=== PATIENT | female | born 1990 | race Caucasian/White ===

== ENCOUNTER 2017-11-27 14:38 | Emergency (ER) | payer MEDICAID ==
[2017-11-27 14:57] VITALS: RESP 18; O2SAT 98
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
[2017-11-27 18:26] VITALS: BP 96/71; PULSE 71; TEMP 98.2
== END 2017-11-27 20:05 | disposition home or self-care (01) ==
LOC: CED 14:38
DX: S82.111A Displaced fracture of right tibial spine, initial encounter for closed fracture (principal); S83.91XA Sprain of unspecified site of right knee, initial encounter; Z87.891 Personal history of nicotine dependence; X50.9XXA Other and unspecified overexertion or strenuous movements or postures, initial encounter; Y99.8 Other external cause status; Y93.23 Activity, snow (alpine) (downhill) skiing, snowboarding, sledding, tobogganing and snow tubing
CPT/HCPCS: 73564-PO; 73700-PO; L1830

== ENCOUNTER → 2017-12-01 | Outpatient (CLI) | payer OTHER | LOC: FIMAGING 07:32 | PROVIDERS: ATTEND Orthopaedic Surgery | DX: S83.411A Sprain of medial collateral ligament of right knee, initial encounter (principal); S82.111A Displaced fracture of right tibial spine, initial encounter for closed fracture; S83.511A Sprain of anterior cruciate ligament of right knee, initial encounter; S83.281A Other tear of lateral meniscus, current injury, right knee, initial encounter ==

== ENCOUNTER 2017-12-04 10:14 | Day surgery (SDC) | payer MEDICAID ==
--- NOTE | 2017-12-04 06:53 | PDHPUP ---
History & Physical Update H&P update statement: This history and physical update is based on an assessment of the patient which was completed after admission or registration (within 24 hours), but prior to the surgery/procedure.
[2017-12-04] MEDS ORDERED: LIDOCAINE 1% 2 ML INJ ID PRN (10:26)
[2017-12-04] MEDS ORDERED: LR 1,000 ML IV SCH (10:26)
[2017-12-04] MEDS ORDERED: LR 1,000 ML IV ONE (10:26)
[2017-12-04] MEDS ORDERED: ceFAZolin 2 GM/SWFI 2 GM/20 ML SYR IVP ONE (10:26)
[2017-12-04] MEDS ORDERED: BUPIVACAINE/EPI 0.5% 30 ML SDV ONE (12:51)
[2017-12-04] MEDS ORDERED: MIDAZOLAM 2 MG/2 ML VIAL ONE (13:30)
[2017-12-04] MEDS ORDERED: MIDAZOLAM 2 MG/2 ML VIAL IVP ONE (13:30)
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
[2017-12-04] MEDS ORDERED: LIDOCAINE 2% JELLY 5 ML TUBE ONE (13:33)
[2017-12-04] MEDS ORDERED: PROPOFOL 200 MG/20 ML VIAL ONE (13:33)
[2017-12-04] MEDS ORDERED: DEXAMETHASONE 4 MG/ML VIAL ONE ×2 (13:33)
[2017-12-04] MEDS ORDERED: ONDANSETRON 4 MG/2 ML VIAL ONE (13:33)
[2017-12-04] MEDS ORDERED: KETOROLAC 30 MG/1 ML SDV ONE (13:33)
[2017-12-04] MEDS ORDERED: fentaNYL 100 MCG/2 ML INJ ONE ×3 (13:33→16:28)
[2017-12-04] MEDS ORDERED: LIDOCAINE 2% 5 ML SDV ONE (13:56)
[2017-12-04] MEDS ORDERED: LR 500 ML IV PRN (14:56)
[2017-12-04] MEDS ORDERED: NALOXONE HCL 0.4 MG/ML INJ IVP PRN (14:56)
[2017-12-04] MEDS ORDERED: PROMETHAZINE HCL 25 MG/ML INJ IVP PRN (14:56)
[2017-12-04] MEDS ORDERED: ONDANSETRON 4 MG/2 ML VIAL IVP PRN (14:56)
[2017-12-04] MEDS ORDERED: ACETAMINOPHEN 500 MG TAB PO PRN (14:56)
[2017-12-04] MEDS ORDERED: OXYCODONE/APAP 5/325 TAB PO PRN (14:56)
[2017-12-04] MEDS: fentaNYL 100 MCG/2 ML INJ IVP PRN ×2 (16:29→16:44)
--- NOTE | 2017-12-04 16:40 | POSTANESTH ---
Post Anesthetic Evaluation Cardiovascular Status: Normal, Stable, Similar to Pre-Op Cond Respiratory Status: Normal, Stable, Similar to Pre-op Cond. Level of Consciousness/Mental Status: Can Participate in Eval, Moderately Sleepy Pain Control: Adequate, Prn Tx Ordered Nausea/Vomiting Control: Adequate, Prn Tx Ordered Complications Possibly Related to Anesthesia: None Noted
[2017-12-04 16:52] VITALS: TEMP 98.6
[2017-12-04] MEDS ORDERED: HYDROCODONE/APAP 5/325 TAB ONE (17:04)
[2017-12-04] MEDS ORDERED: OXYCODONE/APAP 5/325 TAB ONE (17:06)
[2017-12-04 17:22] VITALS: O2SAT 98
[2017-12-04 18:05] VITALS: BP 96/63; PULSE 65; RESP 16
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
== END 2017-12-04 18:05 | disposition home or self-care (01) ==
LOC: FSGY 10:14
PROVIDERS: ATTEND Orthopaedic Surgery
PROC: 0MQN4ZZ Repair Right Knee Bursa and Ligament, Percutaneous Endoscopic Approach (ICD-10-PCS; principal; 2017-12-04 13:15)
PROC: 0MQN0ZZ Repair Right Knee Bursa and Ligament, Open Approach (ICD-10-PCS; principal; 2017-12-04 13:15)
DX: S83.511A Sprain of anterior cruciate ligament of right knee, initial encounter (principal); S83.411A Sprain of medial collateral ligament of right knee, initial encounter; S82.121A Displaced fracture of lateral condyle of right tibia, initial encounter for closed fracture; M22.41 Chondromalacia patellae, right knee; Y93.23 Activity, snow (alpine) (downhill) skiing, snowboarding, sledding, tobogganing and snow tubing; X50.0XXA Overexertion from strenuous movement or load, initial encounter; Y92.828 Other wilderness area as the place of occurrence of the external cause; Y99.8 Other external cause status
CPT/HCPCS: C1713; J0171; J0690; J1100; J1885; J2250; J2405; J2704; J3010; L1832

== ENCOUNTER → 2018-01-09 | Outpatient (CLI) | payer MEDICAID | LOC: BMCIMAGING 14:14 | PROVIDERS: ATTEND Orthopaedic Surgery | DX: S82.111D Displaced fracture of right tibial spine, subsequent encounter for closed fracture with routine healing (principal); M25.461 Effusion, right knee ==